=== PATIENT | female | born 1960 | race Caucasian/White ===

== ENCOUNTER 2024-10-30 10:45 | Outpatient (RCR) | payer BC, SELFPAY | END 2024-10-30 16:31 | disposition home or self-care (01) | LOC: HO.WCC 10:45 | PROVIDERS: Visit Provider Surgery | DX: S30.811D Abrasion of abdominal wall, subsequent encounter (principal); X58.XXXD Exposure to other specified factors, subsequent encounter; Z79.891 Long term (current) use of opiate analgesic | CPT/HCPCS: 11042; 16020; 97597; 99202; 99212 ==

== ENCOUNTER 2025-03-12 10:00 | Outpatient (RCR) | payer BC, SELFPAY ==
[2025-03-12 09:36] VITALS: BMI 44.5
[2025-03-12 09:37] VITALS: BP 131/92; PULSE 70; TEMP 35.6
--- NOTE | 2025-03-12 13:45 | PC.ADMIT ---
Patient is a 64 year old female who was referred to [facility] by her prescriber secondary to increased depression and anxiety sxs. Patient reports medical trauma from hernia surgery she had 4 years ago and has not been able to work since the surgery d/t medical trauma. Patient stated she almost . 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 Patient reports difficulty getting out of bed in the morning and when she does get out of bed she spends most of her day on the couch. Patient reports her anxiety can be debilitating which can impact her ability to leave her home. Supports, My boyfriend Asim and sister and my yoga community. Patient is alert and oriented x4. She is calm and cooperative. She presented with depressed mood and anxious affect. She denied SI, no HI. She was given a copy of her safety plan if needed. Patient's medication list has been updated with patient and patient's pharmacy. She reports being sensitive to medications and was not able to tolerate medication trials of Sertraline and Escitalopram. She reports she is currently taking medications as prescribed.
== END 2025-03-12 23:59 | disposition home or self-care (01) ==
LOC: HO.PHPA 10:00
PROVIDERS: Visit Provider Psychiatry & Neurology Psychiatry
DX: F33.1 Major depressive disorder, recurrent, moderate (principal); F43.10 Post-traumatic stress disorder, unspecified; F41.1 Generalized anxiety disorder; Z72.6 Gambling and betting
CPT/HCPCS: 90791; 90853